=== PATIENT | female | born 1940 | race Caucasian/White ===

== ENCOUNTER 2018-04-10 18:24 | Emergency (ER) | payer MEDICARE, BC ==
[~2018-04-10] VITALS: Ht 152.4 cm; Wt 67.1 kg
[~2018-04-10 18:24] MED LIST: ACIDOPHILUS LA1 EACH PO; ALEVE220 MG PO; ANASPAZ0.125 MG SL; ATENOLOL 25 MG25 M1 PO; CALCIUM 600 +1 EAC1 PO; CIPRO500 MG PO; COLON HEALTH; CYCLOBENZAPRINE5 MG PO; DOXYCYCLINE 10100 M1 PO; ESTRACE0.5 MG; FENOFIBRATE160 MG PO; GLUCOPHAGE500 MG PO; LOPRESSOR25; MIRALAX17 GM PO; MUCINEX600 MG PO; NORCO 5-325 TA1 EACH PO; ONE-A-DAY WOMENS PO; PANTOPRAZOLE SO40 M1 PO; PERCOCET 5-3251 EACH PO; PHENERGAN 25 MG25 M1 PO; PREDNISONE 20 M20 MG PO; SENOKOT-S1 TA1 PO; TESSALON PERLE100 MG PO; TYLENOL ALLERG1 EA11; VENTOLIN HFA 1818 GM INH; VITAMIN D1000 UNI1 PO; VITAMIN E400 UNIT PO; XANAX 0.5 MG0.5 MG PO; ZOFRAN ODT4 MG PO
[2018-04-10 20:03] LABS: URINE BILIRUBIN NEGATIVE (Negative); URINE BLOOD NEGATIVE (Negative); URINE CLARITY CLEAR; URINE COLOR ORANGE; URINE GLUCOSE-RANDOM TRACE (Negative); URINE KETONES NEGATIVE (Negative); URINE LEUKOCYTES-REFLEX NEGATIVE (Negative); URINE PROTEIN NEGATIVE (Negative)
[2018-04-10 20:05] LABS: URINE NITRITE-REFLEX POSITIVE (Negative)
[2018-04-10 20:16] LABS: HYALINE CASTS 0-3 Few /LPF (None Seen)
[2018-04-10 20:17] LABS: MUCUS None Seen strn/LPF (None Seen); SQUAMOUS 0-3 Few /LPF (0-3)
[2018-04-10 20:19] LABS: BACTERIA-REFLEX 1-9 Few /HPF (None Seen); CRYSTALS None Seen /LPF (None Seen); URINE RBC None Seen /HPF (0-2); URINE WBC-REFLEX None Seen /HPF (0-5)
[2018-04-10] MEDS ORDERED: MACROBID 100 M100 M2 PO (20:24)
[2018-04-10 20:43] VITALS: BP 195/62
== END 2018-04-10 20:43 | disposition home or self-care (01) ==
LOC: M.ERS 18:24
PROVIDERS: Physician Assistant
DX: N39.0 Urinary tract infection, site not specified (principal); R33.9 Retention of urine, unspecified; N81.10 Cystocele, unspecified; I10 Essential (primary) hypertension; E11.9 Type 2 diabetes mellitus without complications; E78.00 Pure hypercholesterolemia, unspecified; Z85.3 Personal history of malignant neoplasm of breast; Z88.6 Allergy status to analgesic agent; Z88.1 Allergy status to other antibiotic agents; Z88.8 Allergy status to other drugs, medicaments and biological substances

== ENCOUNTER 2018-09-09 12:22 | Emergency (ER) | payer MEDICARE, BC, OTHER ==
[~2018-09-09] VITALS: Ht 160 cm; Wt 68.5 kg
[~2018-09-09 12:22] MED LIST changes: +MACROBID 100 M100 M2 PO
[2018-09-09] MEDS ORDERED: FLONASE 0.05%50 MCG NASAL (12:37)
[2018-09-09] MEDS ORDERED: AMOXICILLIN 50500 MG PO (12:37)
[2018-09-09 13:29] LABS: ABSOLUTE EOSINOPHILS 0.1 thou/uL (0.0-0.7); ABSOLUTE LYMPHOCYTES 2.3 thou/uL (0.8-5.3); ABSOLUTE MONOCYTES 0.7 thou/uL (0.0-1.2); BASOPHILS 0.3 %; EOSINOPHILS 1.4 %; HEMATOCRIT 36.2 % (37.0-47.0); HEMOGLOBIN 11.9 gm/dL (12.0-15.0); LYMPHOCYTES 28.4 %; MCH 28.8 pg (26.0-34.0); MCHC 32.9 g/dL (28.0-37.0); MCV 87.7 fL (80.0-100.0); MONOCYTES 8.6 %; MPV 8.8 fl. (7.2-11.1); NUCLEATED RBCS 0 /100WBC; PLATELET COUNT* 245 thou/uL (150-400); POLYS 61.3 %; RBC 4.13 mil/uL (4.20-5.00); RDW-CV 17.4 % (10.5-14.5); WBC 8.1 thou/uL (4.0-11.0)
[2018-09-09 13:37] LABS: ANION GAP 7 mmol/L (7-16); BUN 22 mg/dL (7-18); CHLORIDE 93 mmol/L (98-107); CO2 33 mmol/L (21-32); GLUCOSE 122 mg/dL (70-99); POTASSIUM 3.8 mmol/L (3.5-5.1); SODIUM 133 mmol/L (136-145)
[2018-09-09 13:47] LABS: ALBUMIN 4.2 g/dL (3.4-5.0); ALKALINE PHOSPHATASE 41 U/L (46-116); SGOT 24 U/L (15-37); SGPT 26 U/L (30-65); TOTAL BILIRUBIN 0.8 mg/dL (<0.1-1.0); TROPONIN-I LEVEL <0.06 ng/mL (<0.06)
[2018-09-09 14:56] LABS: BE 5.2 mmol/L (-2 to +3); HCO3 29.6 mmol/L (22.0-26.0); PCO2 42.9 mmHg (35.0-45.0); PO2 75.4 mmHg (75.0-100.0); pH 7.457 (7.340-7.450)
[2018-09-09 17:01] LABS: URINE BILIRUBIN NEGATIVE (Negative); URINE BLOOD NEGATIVE (Negative); URINE CLARITY CLEAR; URINE COLOR YELLOW; URINE GLUCOSE-RANDOM NEGATIVE (Negative); URINE KETONES NEGATIVE (Negative); URINE LEUKOCYTES-REFLEX 1+ (Negative); URINE NITRITE-REFLEX NEGATIVE (Negative); URINE PROTEIN NEGATIVE (Negative); URINE SPECIFIC GRAVITY 1.015 (1.005-1.030); URINE UROBILINOGEN 0.2 E.U./dl (0.2-1.0)
[2018-09-09 17:11] LABS: BACTERIA-REFLEX None Seen /HPF (None Seen); CASTS None Seen /LPF (None Seen); CRYSTALS None Seen /LPF (None Seen); SQUAMOUS 4-10 Moderate /LPF (0-3); URINE RBC None Seen /HPF (0-2); URINE WBC-REFLEX None Seen /HPF (0-5)
[2018-09-09] MEDS ORDERED: ANTIVERT25 MG PO (17:41)
[2018-09-09] MEDS ORDERED: KEFLEX500 M1 PO (17:41)
[2018-09-09 17:58] VITALS: BP 176/61
--- NOTE | 2018-09-09 18:10 | EKG ---
[place] [address] ELECTROCARDIOGRAM REPORT Name: NESSA JOSÉ Room: [facility]#: [id number] Admission: 09/09/18 Attend Phys: Discharge: 09/09/18 Date of : 40 Report #: [id number] THIS REPORT FOR: //name// [facility] ED Test Date: 2018-09-09 Test Time: 13:36:41 Pat Name: NESSA JOSÉ Department: Room: Gender: F [employer] Operator: CASSIDY : 1940 Requested By: Doretha Remy Order Number: [id number] MD: Yuri Rojas Measurements Intervals Asher Rate: 61 P: -76 NH: 178 QRS: -23 QRSD: 110 T: 13 QT: 408 QTc: 411 Interpretive Statements Sinus rhythm Left ventricular hypertrophy Compared to ECG 04/19/2017 14:54:17 Atrial premature complex(es) no longer present Short NH interval no longer present Electronically Signed On 09-09-2018 18:10:24 DIRECTOR OF HEAD START by Yuri Rojas [email or web address] <ELECTRONICALLY SIGNED> By: Yuri Rojas MD, [facility] 09/09/18 1810 [id number] Yuri Rojas MD, [facility] /EPI
== END 2018-09-09 18:01 | disposition home or self-care (01) ==
LOC: M.ERS 12:22
PROVIDERS: Nurse Practitioner Family
DX: J32.0 Chronic maxillary sinusitis (principal); R42 Dizziness and giddiness; I10 Essential (primary) hypertension; E11.9 Type 2 diabetes mellitus without complications; E78.00 Pure hypercholesterolemia, unspecified; Z88.1 Allergy status to other antibiotic agents; Z88.6 Allergy status to analgesic agent; Z88.8 Allergy status to other drugs, medicaments and biological substances; Z85.3 Personal history of malignant neoplasm of breast

== ENCOUNTER 2018-10-09 01:24 | Inpatient (IN) | payer MEDICARE, BC, OTHER ==
[~2018-10-09] VITALS: Ht 152.4 cm; Wt 70.2 kg
[~2018-10-09 01:24] MED LIST changes: -ACIDOPHILUS LA1 EACH PO; +ACIDOPHILUS LACT1 GM PO; +AMOXICILLIN 50500 MG PO; +ANTIVERT25 MG PO; +FLONASE 0.05%50 MCG NASAL; +KEFLEX500 M1 PO; +SENOKOT-S TABL1 EACH PO; -SENOKOT-S1 TA1 PO
[2018-10-09 01:27] VITALS: BP 204/84
[2018-10-09 02:16] LABS: ABSOLUTE EOSINOPHILS 0.1 thou/uL (0.0-0.7); ABSOLUTE LYMPHOCYTES 1.3 thou/uL (0.8-5.3); ABSOLUTE MONOCYTES 0.6 thou/uL (0.0-1.2); BASOPHILS 0.6 %; EOSINOPHILS 2.1 %; HEMOGLOBIN 10.2 gm/dL (12.0-15.0); LYMPHOCYTES 26.3 %; MCH 28.1 pg (26.0-34.0); MCV 85.1 fL (80.0-100.0); MONOCYTES 11.8 %; MPV 8.3 fl. (7.2-11.1); NUCLEATED RBCS 0 /100WBC; PLATELET COUNT* 255 thou/uL (150-400); POLYS 59.2 %; RBC 3.65 mil/uL (4.20-5.00); RDW-CV 15.3 % (10.5-14.5); WBC 5.1 thou/uL (4.0-11.0)
[2018-10-09 02:23] LABS: CREATININE 0.9 mg/dL (0.6-1.3); POTASSIUM 3.7 mmol/L (3.5-5.1)
[2018-10-09 02:28] LABS: ALBUMIN 3.5 g/dL (3.4-5.0); TOTAL BILIRUBIN 0.5 mg/dL (<0.1-1.0)
[2018-10-09 03:23] LABS: ESR (SEDRATE) 2 mm/hr (0-30)
[2018-10-09 04:55] VITALS: BP 147/52
[2018-10-09 05:00] VITALS: BP 154/62
--- NOTE | 2018-10-09 06:56 | NUR ---
Admit this am at 0440 with left knee pain and swelling and unable to ambulate. She states she hasn't fallen, she does live alone. L leg&foot is swollen. She has 2+ pedal pulses bilat. She has stress incontinence, wears pad. No skin issues. She is alert and oriented x 4. Oriented to callight and tv and phone.
[2018-10-09 07:40] VITALS: BP 154/64
[2018-10-09 09:31] LABS: URINE BILIRUBIN NEGATIVE (Negative); URINE BLOOD NEGATIVE (Negative); URINE CLARITY CLEAR; URINE COLOR YELLOW; URINE GLUCOSE-RANDOM NEGATIVE (Negative); URINE KETONES NEGATIVE (Negative); URINE NITRITE-REFLEX NEGATIVE (Negative); URINE PROTEIN NEGATIVE (Negative); URINE UROBILINOGEN 0.2 E.U./dl (0.2-1.0)
[2018-10-09 09:32] LABS: URINE LEUKOCYTES-REFLEX 2+ (Negative)
[2018-10-09 09:51] LABS: CASTS None Seen /LPF (None Seen); CRYSTALS None Seen /LPF (None Seen); MUCUS 0-3 Light strn/LPF (None Seen); SQUAMOUS 0-3 Few /LPF (0-3); URINE RBC 0-2 Rare /HPF (0-2); URINE WBC-REFLEX 6-15 Few /HPF (0-5)
--- NOTE | 2018-10-09 11:10 | NUR ---
INITIAL ASSESSMENT: Pt evaluated for d/c planning needs. Reviewed chart and spoke with nurse and pt. Pt is alert and oriented. Pt lives alone in duplex and was independent with ADL's prior to admission to the hospital. Pt states she remains active in the community and is still driving. Pt uses walker for ambulation. Pt said she has had home health in the past. Pt is hopeful to return home on d/c from hospital. Pt has been to [facility] in the past. Will remain available to assist as needed.
[2018-10-09 11:21] LABS: CALCIUM 8.3 mg/dL (8.5-10.1); CREATININE 0.8 mg/dL (0.6-1.3); POTASSIUM 3.4 mmol/L (3.5-5.1)
--- NOTE | 2018-10-09 16:25 | NUR ---
RECIEVED O.T. EVAL AND TX ORDERS. WILL DEFER TO P.T. AND NURSING. PLEASE ORDER FURTHER O.T. SERVICES IF NEEDED.
[2018-10-09 17:03] VITALS: BP 145/67
--- NOTE | 2018-10-09 18:35 | NUR ---
ASSUMED CARE OF PATIENT AT APPROX 0730. ALERT AND ORIENTED X4. ASSESSMENT COMPLETED AND CHARTED. VSS ON ROOM AIR. NO COMPLAINTS OF NASEA, OR SOA. PAIN HAS BEEN MINIMAL AND MANAGED WITH ORAL DOSE OF HYDROCODONE THIS AM AND PLACEMENT OF LIDOCAINE PATCH TO LEFT KNEE. PATIENT USING BEDPAN FOR VOIDING, NO BOWEL MOVEMENT TODAY. SITS AT EDGE OF THE BED FOR MEALS. EDUCATED ON RISKS FOR FALL AND PRECAUTIONS TO P[REVENT THEM, COMMUNICATES UNDERSTANDING. FALL PRECAUTIONS IN PLACE. HOURLY ROUNDS COMPLETED. CALL LIGHT WITHIN REACH AND USES APPROPRIATELY. NURSING WILL CONTINUE TO MONITOR.
[2018-10-09 20:00] VITALS: BP 148/64
[2018-10-10 04:06] LABS: HEMATOCRIT 32.1 % (37.0-47.0); HEMOGLOBIN 10.6 gm/dL (12.0-15.0); MCH 28.7 pg (26.0-34.0); MCHC 33.1 g/dL (28.0-37.0); MCV 86.5 fL (80.0-100.0); RBC 3.71 mil/uL (4.20-5.00); RDW-CV 15.7 % (10.5-14.5); WBC 3.9 thou/uL (4.0-11.0)
[2018-10-10 04:18] LABS: CALCIUM 8.5 mg/dL (8.5-10.1); CREATININE 0.7 mg/dL (0.6-1.3); POTASSIUM 3.6 mmol/L (3.5-5.1)
--- NOTE | 2018-10-10 06:19 | NUR ---
ASSUMED PATIENT CARE AT 1900. PATIENT ALERT AND ORIENTED TIMES FOUR. ABLE TO AMBULATE WITH GAIT BELT AND WALKER TO THE BSC AND RECLINER. O2 IN PLACE AT 2L. IV PATENT WITH FLUIDS INFUSING. MINOR COMPLAINTS OF PAIN, CONTROLLED WITH ORAL MEDICATION. NO SKIN ISSUES NOTED. USES CALL LIGHT APPROPRIATELY. EYEGLASS MAKER AND HOURLY ROUNDING COMPLETED DOCUMENTED
[2018-10-10 08:30] VITALS: BP 184/74
--- NOTE | 2018-10-10 18:37 | NUR ---
PATIENT REMAINED ALERT AND ORIENTED X'S 4. VITAL SIGNS AND SPO2 STABLE. IV CLEAN, FLUSHING FLUIDS. PAIN WELL CONTROLLED WITH PATCH AND MEDS. TOLERATED DIET, NO NAUSEA AND VOMITING. VOIDED AND PASSED BM WITHOUT ISSUE. COMPLETED HOURLY ROUNDING. CALL LIGHT WITHIN REACH. WILL CONTINUE TO MONITOR.
[2018-10-10 21:20] VITALS: BP 178/80
--- NOTE | 2018-10-11 05:23 | NUR ---
ASSUMED CARE OF PATIENT AT APPROX 1930. ALERT AND ORINTED X4. VSS ON ROOM AIR. NO COMPLAINTS OF NAUSEA OR SOA. PAIN AND ANXIETYT MANAGED WITH MEDICATIONS. PATEINT STATED THAT SHE WAS VERY LONELY AND DIDNT UNDERSTAND WHY SHE HADNT SEEN ANYONE SINCE SHES BEEN HERE. WHEN ASKED IF SHE MEANT STAFF SHE SAID NO, THE OTHER PATIENTS. AFTER HAVING MEDICATION FOR PAIN, ANXIETY AND MUSCLE SPASMS, PATIENT SLEPT THROUGHOUT THE NIGHT. FALL PRECAUTIONS IN PLACE. CALL LIGHT IN REACH AND PATIENT USES IT FREQUENTLY. HOURLY ROUNDS COMPLETED. NURSING WILL CONTINUE TO MONITOR.
[2018-10-11 08:30] VITALS: BP 195/92
[2018-10-11 16:05] VITALS: BP 140/65
--- NOTE | 2018-10-11 17:53 | NUR ---
ALERT AND ORIENTED X4. UP WITH ASSIST X1 WITH WALKER AND GAIT BELT. DENIES PAIN AND NAUSEA. TOLERATING DIET. ATTENDED PHYSICAL THERAPY THIS SHIFT. IV IS PATENT AND SALINE LOCKED. VSS ON ROOM AIR. HOURLY ROUNDS HAVE BEEN MAINTAINED THROUGHOUT SHIFT. CALL LIGHT IS WITHIN REACH NURSING WILL CONTINUE TO MONITOR.
[2018-10-11 20:00] VITALS: BP 151/61
--- NOTE | 2018-10-12 05:04 | NUR ---
ASSUMED CARE OF PATIENT AT APPROX 1930. ALERT AND ORIENTED X4. ASSESSMENT COMPLETED AND CHARTED. VSS ON ROOM AIR. PATIENT HAD NO COMPLAINTS OF SOA. PAIN MINIMAL, ANXIETY PRESENT UPON SHIFT ASSESSMENT, BOTH MANAGED WITH ORAL MEDICASTION AND TOPICAL CREAM APPLIED TO AFFECTED LEG. UP WITH GAIT BELT AND WALKER TO THE BATHROOM. OBSERVED RESTING COMFORTABLY IN BED UPON HOURLY ROUNDS. CALL LIGHT WITHIN REACH AND PATIENT USES APPROPRIATELY. NURSING WILL CONTINUE TO MONITOR.
[2018-10-12 08:00] VITALS: BP 135/65
--- NOTE | 2018-10-12 15:15 | NUR ---
[facility] SALESPERSON INFORMED THAT THE PLAN IS FOR THE PATIENT TO D/C TO INPATIENT REHAB HERE IN THE HOSPITAL WHEN APPROVED. INPATIENT REHAB CONSULTED AND PT/OT WORKING WITH THE PATIENT. AWAITING INPATIENT REHAB DECISION. CM WILL REMAIN AVIALABLE TO ASSIST AND FOLLOW NEEDED.
[2018-10-12 16:31] VITALS: BP 160/78
--- NOTE | 2018-10-12 18:25 | NUR ---
PT ALERT AND ORIENTED X 4. DENIES NAUSEA. HAS PAIN IN LEFT KNEE WITH ACTIVITY ONLY. UP WITH SBA X 1 TO BR. RECEIVED HYDROCODNE FOR PAIN CONTROL. HOURLY ROUNDS MAINTAINED. PT WILL USE CALL LIGHT FOR ASSISTANCE. CALL LIGHT WITHIN REACH.
[2018-10-12 20:00] VITALS: BP 156/55
--- NOTE | 2018-10-13 07:37 | NUR ---
PATIENT SLEPT WELL THROUGHOUT THE NIGHT. VSS ON RA. NO C/O PAIN. PATIENT IS UP WITH ASSIST X 1 WITH GAITBELT AND WALKER TO [facility] [place]. MEDICATIONS GIVEN ORDERED AND CHARTED. PATIENT INSTRUCTED TO USE CALL LIGHT WHEN NEEDING ASSISTANCE. HOURLY ROUNDS MADE. FALL PRECAUTIONS IN PLACE AND HOURLY ROUNDS MADE. WILL CONTINUE WITH PLAN OF CARE AND NURSING TO MONITOR.
[2018-10-13 08:00] VITALS: BP 151/77
[2018-10-13 15:45] VITALS: BP 146/76
--- NOTE | 2018-10-13 19:52 | NUR ---
PT ALERT AND ORIENTED X 4. DENIES NAUSEA. PAIN WITH ACTIVITY ONLY. RECEIVED HYDOCODONE FOR PAIN CONTROL. IV PATENT. PARTICIPATED WITH THERAPIES DURING DAY. MRI COMPLETED THIS AFTERNOON. PT HAS A FRACTURE OF THE PROXIMAL LEFT TIBIA PER REPORT. CONSULTED ORTHO-OKAY FOR PATIENT TO CONTINUE CURRENT ACTIVITY AND WILL CONSULT IN MORNING. HOURLY ROUNDS MAINTAINED. CALL LIGHT WITHIN REACH.
[2018-10-13 19:55] VITALS: BP 128/62
[2018-10-13 20:11] LABS: MAGNESIUM 1.2 mg/dL (1.8-2.4); POTASSIUM 4.1 mmol/L (3.5-5.1)
--- NOTE | 2018-10-14 06:05 | NUR ---
PATIENT HAS SLEPT WELL THROUGHOUT THE NIGHT WITHOUT ANY ISSUES. VSS ON RA. PAIN CONTROLLED WITH ORAL PAIN MEDICATION. PATIENT IS UP WITH ASSIST X 1 TO BSC. IV IN LEFT HAND-SL. PATIENT INSTRUCTED TO USE CALL LIGHT WHEN NEEDING ASSISTANCE. HOURLY ROUNDS MADE. WILL CONTINUE WITH PLAN OF CARE AND NURSING TO MONITOR.
[2018-10-14 08:30] VITALS: BP 136/58
[2018-10-14 08:40] VITALS: BP 136/58
[2018-10-14] MEDS ORDERED: AMLODIPINE BESYL5 M1 PO (09:46)
[2018-10-14] MEDS ORDERED: ACIDOPHILUS1 EAC4 PO (09:46)
[2018-10-14] MEDS ORDERED: VOLTAREN GEL 1100 G1 TOP (09:46)
[2018-10-14] MEDS ORDERED: LIDOPATCH1 EACH TOP (09:46)
[2018-10-14 15:46] VITALS: BP 136/58
[2018-10-14 15:48] VITALS: BP 121/54
[2018-10-14 18:00] VITALS: BP 136/58
--- NOTE | 2018-10-14 18:47 | NUR ---
PATIENT LEFT FOR REHAB UPSTAIRS AT 1830. IV DC'D. CALL RITA FOR REPORT. EDUCATED PATIENT ON DISCHARGE INSTRUCTIONS. PATIENT VERBALIZED UNDERSTANDING. ALL BELONGINGS LEFT WITH PATIENT.
== END 2018-10-14 18:54 | DRG 543 ==
LOC: M.ERS 01:24 → M.TBA-ER 03:41 → M.ORTHSURG 03:41
PROVIDERS: Emergency Medicine; Internal Medicine; ADMIT Family Medicine
DX: M84.362A Stress fracture, left tibia, initial encounter for fracture (principal); R65.10 Systemic inflammatory response syndrome (SIRS) of non-infectious origin without acute organ dysfunction; N39.0 Urinary tract infection, site not specified; E87.1 Hypo-osmolality and hyponatremia; E86.0 Dehydration; M17.12 Unilateral primary osteoarthritis, left knee; I10 Essential (primary) hypertension; E11.9 Type 2 diabetes mellitus without complications; G89.29 Other chronic pain; E78.00 Pure hypercholesterolemia, unspecified; M54.9 Dorsalgia, unspecified; Z96.1 Presence of intraocular lens; Z60.2 Problems related to living alone; Z85.3 Personal history of malignant neoplasm of breast; Z90.11 Acquired absence of right breast and nipple; Z87.81 Personal history of (healed) traumatic fracture; Z98.42 Cataract extraction status, left eye; Z98.41 Cataract extraction status, right eye; Z79.899 Other long term (current) drug therapy; Z88.6 Allergy status to analgesic agent

== ENCOUNTER 2018-10-14 15:55 | Inpatient (IN) | payer MEDICARE, BC, OTHER ==
[~2018-10-14] VITALS: Ht 152.4 cm; Wt 67.6 kg
--- NOTE | ~2018-10-14 | PLAN ---
[address] [address] REHAB UNIT PLAN OF CARE Name: NESSA JOSÉ Room: [address] IN [facility].#: [id number] Admission: 10/14/18 Attend Phys: Aminata Parra DO Discharge: 10/30/18 Date of : 40 Report #: [id number] THIS REPORT FOR: //name// CC: Aminata Perez OVERALL PLAN OF CARE This is a 78-year-old female admitted to inpatient rehabilitation to facilitate safe discharge home, status post acute hospitalization post-fall sustaining a left tibial plateau fracture, diagnosed via MRI on 10/13/2018. She does have weightbearing, partial 25-50% on the left lower extremity and to advance as tolerated per Orthopedics. She does have mechanical altered ground with thin liquid diet. She does have some cognitive deficits as well. MEDICAL PROGNOSIS: Good. REHABILITATION PROGNOSIS: Good. Previous level of function was independent to modified independent with activities of daily living including driving and caring for self. Current level of function is minimum to moderate assistance of 1-2 depending on therapy, activity and time of day. ESTIMATED LENGTH OF STAY: 10-12 days with discharge disposition to the home setting with supportive family and accessible house. Physical therapy will see the patient 60-90 minutes per day, 5 days per week, working on upper and lower body strength, balance, coordination, navigation. Occupational therapy will work with the patient 60-90 minutes per day, 5 days per week, working on upper and lower body strength, balance, coordination, navigation, bathing, dressing, and toileting. Speech and language pathology will work with the patient on expression, cognition, memory, and strategies to improve those as well as working with her diet, which is currently mechanical altered ground with thin liquids. This is an overall plan of care, may change from time to time. We will team weekly and make changes to plan of care as needed. By: [id number] Parra DO /lauren
[~2018-10-14 15:55] MED LIST changes: +ACIDOPHILUS1 EAC4 PO; +AMLODIPINE BESYL5 M1 PO; +LIDOPATCH1 EACH TOP; +VOLTAREN GEL 1100 G1 TOP
[2018-10-14 19:03] VITALS: BP 139/67
--- NOTE | 2018-10-15 01:27 | NUR ---
ASSUMED CARE AT 1930, NEW ADMIT CAME AT 1900. WAS SITTING IN RECLINER UNTIL AROUND 2100. UP WITH MIN LIFTING, GAIT BELT, WALKER, MUCH CUEING. VOIDS PER BSC, ABLE TO DO OWN HYGIENE AND CLOTHING ADJUSTMENTS. LIDOCAINE PATCH REMOVED AT HS. ASSESSMENT DONE. MONEY IN PURSE GIVEN TO SECURITY, RECEIPT IN FRONT OF CHART. TAKES MEDS WHOLE, LARGE ONES ALONE, SMALLER ONES A COUPLE TOGETHER WITH WATER. TURNS SELF. BED ALARM SET. TWICE HAS SET OFF ALARM DESPITE EDUCATION, NEEDING TO VOID. ASSISTED TO BSC BOTH TIMES. SAFETY EDUCATION REPEATED. FORGETFUL AND IMPULSIVE. DENIES PAIN AT HS. HOURLY ROUNDS CONTINUE. BED ALARM ON. CALL LITE IN REACH.
--- NOTE | 2018-10-15 03:40 | NUR ---
USED TO CALL LITE TO REQUEST TO VOID. VOIDED PER BSC. MUCH MORE ALERT AND ORIENTED AT THIS TIME. HOURLY ROUNDS CONTINUE. CALL LITE IN REACH. BED ALARM ON.
[2018-10-15 04:50] LABS: HEMATOCRIT 32.5 % (37.0-47.0); HEMOGLOBIN 10.7 gm/dL (12.0-15.0); MCH 28.4 pg (26.0-34.0); MCHC 32.9 g/dL (28.0-37.0); MCV 86.2 fL (80.0-100.0); RBC 3.77 mil/uL (4.20-5.00); RDW-CV 15.6 % (10.5-14.5); WBC 3.2 thou/uL (4.0-11.0)
[2018-10-15 05:11] LABS: CALCIUM 9.4 mg/dL (8.5-10.1); CREATININE 0.8 mg/dL (0.6-1.3); MAGNESIUM 1.3 mg/dL (1.8-2.4); POTASSIUM 3.8 mmol/L (3.5-5.1)
--- NOTE | 2018-10-15 05:50 | NUR ---
MENTATION IMPROVED. MUCH MORE ALERT AND ABLE TO ANSWER QUESTIONS. USED CALL LITE TO CALL TO USE BSC. UP WITH SBA, GAIT BELT, CUEING. VOIDED PER BSC, DID OWN HYGIENE. RETURNED TO BED. DECLINED XANAX AT THIS TIME, BECAUSE SHE WANTED TO SEE HOW SHE DOES THIS MORNING AND REALIZED IT MADE HER VERY SLEEPY. REINFORCED THAT SECURITY TOOK THE MONEY FROM HER PURSE AND LOCKED IT UP, WITH THE RECEIPT IN THE CHART. NO C/O PAIN. HOURLY ROUNDS CONTINUE. BED ALARM ON. CALL LITE IN REACH.
[2018-10-15 08:00] VITALS: BP 142/68
--- NOTE | 2018-10-15 09:00 | NUR ---
Nutrition: Consult received for new Rehab admit. Pt appears nutritionally stable. Albumin 3, BG 142. H/o DM, UTI, breast cancer, HTN. Ground diet. RX noted. Admitted for tibial FX. Wt: 153#. Will follow weekly. Low risk.
--- NOTE | 2018-10-15 17:18 | NUR ---
SW met with pt to complete initial assessment, introduce self, and SW role on inpt rehab unit. Pt alert, oriented. Pt lives at home alone. Pt has 2 sons who live in [place]. Pt has a cousin who is supportive as well. Pt is 25 to 50 % WBS. Pt has an old RW and pt will need a new rolling walker ordered for dc. Pt has a shower bench. Pt has hx with HH services but says she will refuse any HH services at dc. SW to continue to follow to assist with safe dc planning.
--- NOTE | 2018-10-15 18:57 | NUR ---
I ASSUMED CARE OF THE PATIENT AT 0700. SHE IS ALERT AND ORIENTED X4 AND IS UP WITH SBA AND A WALKER/GB. SHE IS PARTIAL WB ON THE LEFT LEG 25-50%. MAG WAS REPLACED. BED IS IN THE LOW LOCKED POSITION AND CALL LIGHT IS IN REACH. HOURLY ROUNDING WAS COMPLETED AND PATIENT NEEDS ARE MET. PAIN IS MANAGED WITH PRN MEDS. WILL CONTINUE TO MONITOR.
[2018-10-15 20:11] VITALS: BP 149/68
--- NOTE | 2018-10-16 01:51 | NUR ---
ASSUMED CARE @ 1947-10/15-.SITS IN RECLINER WATCHING TV.LE'S UP W/ PILLOW UNDER LEFT LE.ASSISTED TO BED BY BASE WAD OPERATOR ADJUSTER @ 2129.HOB UP.REFUSED HEELS OFF BED IN BED.HEELS-NOT RED.BED ALARM PUT ON @ 2129.PRN FLXERIL 10 MG ORAL GIVEN @ 2232 FOR LEFT LE SPASMS.SEE PAIN MANAGEMENT @ 2234.PWB LEFT LE OBSERVED DURING TRANSFERS.MAG OXIDE 400 MG GIVEN 3X Q 2 HOURS @ 2027,2226 & 54.ON HOURLY ROUNDS.BASE WAD OPERATOR ADJUSTER DOING ODD HOUR ROUNDS.
--- NOTE | 2018-10-16 05:14 | NUR ---
SLEEPING SINCE 2319.AWAKE @ INTERVALS TO USE BSC TO VOID X4.TOOK ALL ARIANA CRACKERS TWO PACKAGES ,ONE PACKAGE PEANUT BUTTER & DIET COKE HS SNACKS.
[2018-10-16 05:42] LABS: HEMATOCRIT 31.3 % (37.0-47.0); HEMOGLOBIN 10.2 gm/dL (12.0-15.0); MCH 28.1 pg (26.0-34.0); MCHC 32.7 g/dL (28.0-37.0); MPV 9.1 fl. (7.2-11.1); RBC 3.64 mil/uL (4.20-5.00); RDW-CV 15.4 % (10.5-14.5); WBC 3.2 thou/uL (4.0-11.0)
[2018-10-16 06:14] LABS: CALCIUM 9.1 mg/dL (8.5-10.1); CREATININE 0.8 mg/dL (0.6-1.3); MAGNESIUM 1.5 mg/dL (1.8-2.4); POTASSIUM 3.6 mmol/L (3.5-5.1)
[2018-10-16 07:00] VITALS: BP 136/64
--- NOTE | 2018-10-16 13:47 | NUR ---
ASSUMED CARE AT 0730. ALERT ORIENTED PLEASANT COOPERATIVE. HX OF L TIBIA PLATEAU FX TREATED CONSERVATIVELY. PARTIAL WEIGHT BEARING 25-50 % LLE. TRANSFERS WITH CGA FROM BED TO BSC AND TO RECLINER. DENIES NEED FOR PAIN MEDS AT PRESENT. PARTICIPATING IN THERAPIES THROUGHOUT THE MORNING SOME SOA DURING AFTERNOON P.T. SESSION BUT PT. STATES SHE HAS HX OF BRONCHITIS AND THIS ISNT NEW FOR HER. SITTING IN RECLINER WITH BLES ELEVATED FOR EDEMA CONTROL. TAKS MEDS ONE AT A TIME WITH TAP WATER. ABLE TO DO HYGEINE AND CLOTHING ADJUSTMENTS.
[2018-10-16 18:50] VITALS: BP 147/54
--- NOTE | 2018-10-16 20:00 | NUR ---
SITTING UP IN RECLINER WITH LEGS ELEVATED SLEEPING. AWAKENED FOR HS REASSESSMENT AND MEDICATIONS PASS. VOIDED PER BEDSIDE COMMODE AND THEN ASSISTED TO BED. TRANSFERS PER CGA, STAND, PIVOT, PARTIAL WEIGHT BEARING TO LEFT LOWER EXTEMITY.
--- NOTE | 2018-10-17 06:33 | NUR ---
UP TO BEDSIDE COMMODE 9 TIMES THIS SHIFT. LAST TWO TIMES HAD A BM. ASSISTED WITH [facility]. HAS BEEN UP IN THE RECLINER SINCE ABOUT 0530 READING. UNABLE TO SLEEP. HOURLY ROUNDING IN PROGRESS.
[2018-10-17 07:30] VITALS: BP 144/68
--- NOTE | 2018-10-17 16:41 | NUR ---
PATIENT ALERT AND ORIENTED X 4. VITAL SIGNS STABLE ON ROOM AIR. AFEBRILE. UP TO THE BEDSIDE COMODE WITH ASSISTANCE. DENIES PAIN AND NAUSEA AT THIS TIME. TOLERATED MORNING THERAPIES. RESTING IN CHAIR THIS AFTERNOON. FALL PRECAUTIONS IN PLACE AND CHAIR ALARM ON. HOURLY ROUNDS MAINTAINED THROUGHOUT THE SHIFT. CALL LIGHT WITHIN REACH. NURSING WILL CONTINUE TO MONITOR.
[2018-10-17 20:00] VITALS: BP 133/66
--- NOTE | 2018-10-18 05:17 | NUR ---
ASSUMED PT CARE AT 1930. PT ALERT AND ORIENTED X4, POLITE AND COOPERATIVE WITH CARES ALREADY IN BED AT SHIFT CHANGE. HX OF L TIBIA PLATEAU FX. PARTIAL WEIGHT BEARING 25-50% LLE. PT UP TO BSC WITH CGA, GAIT BELT, STAND/PIVOT TO VOID SEVERAL TIMES OVERNIGHT. PT DOES OWN PERICARES. PRN PAIN MEDICATION AND FLEXERIL AT HS. 1+ EDEMA TO BLE. NO STOOL THIS SHIFT. TAKES MEDS ONE AT A TIME WITH WATER. USES CALL LIGHT APPROPRIATELY. CALL LIGHT AND FREQUENTLY USED ITEMS WITHIN REACH. BED ALARM ON FOR SAFETY. HOURLY ROUNDING IN PROGRESS, WILL CONTINUE TO MONITOR.
[2018-10-18 08:15] VITALS: BP 151/70
--- NOTE | 2018-10-18 16:46 | NUR ---
PATIENT ALERT AND ORIENTED X 4. VITAL SIGNS STABLE ON ROOM AIR. AFEBRILE. UP WITH ASSISTANCE TO THE BEDSIDE COMMODE. DENIES PAIN AND NAUSEA AT THIS TIME. FALL PRECAUTIONS IN PLACE AND BED/CHAIR ALARM ON. HOURLY ROUNDS MAINTAINED THROUGHOUT THE SHIFT. CALL LIGHT WITHIN REACH. NURSING WILL CONTINUE TO MONITOR.
[2018-10-18 20:00] VITALS: BP 154/75
--- NOTE | 2018-10-19 05:20 | NUR ---
ASSUMED PT CARE AT 1930. PT ALERT AND ORIENTED X4, POLITE AND COOPERATIVE WITH CARES. PT IS [place]. ALREADY IN BED AT SHIFT CHANGE. HX OF L TIBIA PLATEAU FX. PARTIAL WEIGHT BEARING 25-50% LLE. 1+ EDEMA TO BLE. PT UP TO BSC WITH CGA, GAIT BELT, STAND/PIVOT TO VOID SEVERAL TIMES OVERNIGHT. NO STOOL THIS SHIFT. PT DOES OWN PERICARES. WEARS BRIEF. PRN PAIN MEDICATION AND FLEXERIL AT HS. MELATONIN GIVEN WITH GOOD RESULT. TAKES MEDS ONE AT A TIME WITH WATER, LARGE PILLS CUT IN HALF. USES CALL LIGHT APPROPRIATELY. CALL LIGHT AND FREQUENTLY USED ITEMS WITHIN REACH. BED ALARM ON FOR SAFETY. HOURLY ROUNDING IN PROGRESS, WILL CONTINUE TO MONITOR.
[2018-10-19 07:30] VITALS: BP 129/70
--- NOTE | 2018-10-19 13:16 | NUR ---
ASSUMED CARE AT 0730. ALERT ORIENTED PLEASANT COOPERATIVE. HX OF L TIBIA PLATEAU NON DISPLACED FX 25-50% WEIGHT BEARING LLE USING WALKER GAIT BELT AND VERBAL CUES. PARTCIPATING IN THERAPIES THROUGHOUT THE MORNING. SITTING IN RECLINER AT BEDSIDE WHEN NOT IN THERAPIES. DENIES NEED FOR PRN PAIN MEDS. VOIDS IN BSC AND IS ABLE TO DO HYGEINE AFTERWARDS AND CLOTHING ADJUSTMENTS. FEEDS SELF AND TAKES MEDS ONE AT A TIME WITH WATER HAS HX OF HIATAL HERNIA. APPETITE GOOD. USES CALL LIGHT APPROPRIATELLY FOR ASSISTANCE.
[2018-10-19 20:00] VITALS: BP 155/75
--- NOTE | 2018-10-20 05:20 | NUR ---
ASSUMED PT CARE AT 1930. PT ALERT AND ORIENTED X4, POLITE AND COOPERATIVE WITH CARES. PT IS [place]. SITTING UP IN RECLINER AT SHIFT CHANGE. HX OF L TIBIA PLATEAU FX. PARTIAL WEIGHT BEARING 25-50% LLE. PT US TO BSC WITH CGA, GAIT BELT AND STAND/PIVOT SEVERAL TIMES OVERNIGHT TO VOID. NO STOOL THIS SHIFT. PT DOES OWN PERICARES. WEARS BRIEF. PRN PAIN MEDICATION AT HS. PT STARTED ROPINOROLE TONIGHT WHICH WAS EFFECTIVE. TAKES MEDS ONE AT A TIME WITH WATER, LARGE PILLS CUT IN HALF. USES CALL LIGHT APPROPRIATELY. CALL LIGHT AND FREQUENTLY USED ITEMS WITHIN REACH. BED ALARM ON FOR SAFETY. HOURLY ROUNDING IN PROGRESS, WILL CONTINUE TO MONITOR.
[2018-10-20 07:40] VITALS: BP 144/79
--- NOTE | 2018-10-20 14:15 | NUR ---
ASSUMED CARE AT 0730. ALERT ORIENTED PLEASANT COOPERATIVE. HX OF L NON DISPLACED TIBIA PLATEAU FX 25-50% WEIGHT BEARING LIMIT. TRANSFERS WITH CGA AND CUES FOR WEIGHT BEARING. DENIES PAIN OR REQUESTS. USES CALL LIGHT APPROPRIATELY FOR ASSIST, SITTING IN RECLINER AT BEDSIDE WHEN NOT PARTICIPATING IN THERAPIES.TO DR FOR MEALS PER W/C. TAKES MEDS 1 AT A TIME WITH WATER HAS SOME DIFFICULTY WITH CALCIUM CUT IN HALF EATS ARIANA CRACKERS AFTER MEDS. FEEDS SELF APPETITE FAIRLY GOOD.
--- NOTE | 2018-10-20 16:05 | NUR ---
PTS. FEET HAVE EDEMA PRESENT ELEVATE MUCH POSSIBLE WHEN NOT IN THERAPIES DENIES PAIN OR REQUESTS.
[2018-10-20 19:40] VITALS: BP 129/63
--- NOTE | 2018-10-21 01:22 | NUR ---
ASSUMED CARE @ 1924-10/20-.SITS IN RECLINER W/ LE'S UP.READING BOOK.CHAIR ALARM ALREADY ON @ 1924.MIN ASSIST FOR ALL TRANSFERS & TOILETING.PWB LEFT LE OBSERVED DURING TRANSFERS.WEARS PULL UPS.FOOT OF BED ELEVATED @ 2014 WHEN IN BED DUE TO EDEMA-LE'S.SEE PAIN MANAGEMENT @ 2055.ON HOURLY ROUNDS.
--- NOTE | 2018-10-21 05:14 | NUR ---
SLEEPING SINCE 2140 & SLEPT GOOD ALL NIGHT.AWAKE @ INTERVALS TO USE BSC TO VOID X 4.TOOK ONE PACKAGE ARIANAKARY MENDIETAERS W/ HS MEDS.
--- NOTE | 2018-10-21 07:30 | NUR ---
ASSUMED CARE OF PT ASSESSED AND DOCUMENTED. PT IS A&O WITH NO C/O PAIN. AIDED PT TO BEDSIDE CHAIR WITH GAIT BELT AND WALKER. PT IS ON FALL PRECAUTIONS PER FACILITY PROTOCOL. VSS WNL. PT IS AFEBRILE. LUNGS ARE CLEAR AND SHE IS ON ROOM AIR. PT HAS TRACE EDEMA NOTED IN BLLE'S. ENCOURAGE USE OF INCENTIVE SPIROMETER. BED IS IN LOW POSTION CALL LIGHT IS IN REACH. WM.
[2018-10-21 08:00] VITALS: BP 101/53; BP 149/77
[2018-10-21] MEDS ORDERED: [UNRECOGNIZED DRUG - SUPPLY] VAG (12:32)
[2018-10-21] MEDS ORDERED: ESTRADIOL 1 MG T1 M1 PO (12:36)
--- NOTE | 2018-10-21 12:57 | NUR ---
Hawa. FROM DR BILLINGS TO CALL PTS PHARMACY AND FIND OUT WHAT EXISTING ORDERS ARE FOR PTS PESARY. WILL CHANGE PTS PHARMACY ON RECORD SHE NOW USES HY-VEE AT 40 AND 7. SPOKE WITH YORDY IN PHARMACY. ORDER IS FOR TOPICAL ESTRIDOL CREME .1 MG 3X WKLY WELL TOPICAL TRIMO-PRICE .025% GEL Q OTHER DAY. PER VANESSA PT WILL NEED F/UP WITH UROLOGY ON AN OUT PT BASIS.
[2018-10-21 13:07] VITALS: BP 149/77
--- NOTE | 2018-10-21 15:00 | NUR ---
SW met with pt to review team conference summary and plan for pt to remain on rehab unit another week with team to reassess pt length of stay during team conference next Friday. Pt in agreement with plan and hopeful that she is ready to dc home alone at time of dc. Pt also mentioned that she thinks she has a doctor's appt scheduled for sometime in October and that her son plans to help figure out the schedule. SW to continue to follow to assist with safe dc planning.
--- NOTE | 2018-10-21 16:25 | NUR ---
PT HAS RESTED IN HER ROOM AT BEDSIDE CHAIR. SHE IS UP TO THE DINING ROOM FOR 2 MEALS. NEW ORDER FOR WBAT. PT WAS UP TO THE COMMODE WITH GAITBELT AND WALKER AND HAD A LG BM. NEW ORDERS IN FOR PESARY CREME AND GEL. PT IS ANXIOUS ABOUT MISSING HER UROLOGY APPT SET IN OCT. SHE DOES NOT RECALL THE DATE AND IS TRYING TO GET SON TO GO TO HER HOUSE AND LOOK FOR APPT TIME. PT IS FORGETFUL. PT CONT TO USE INCENTIVE SPIROMETER.. EDUCATION GIVEN ON DEMAND. HOURLY ROUNDING CONTINUES.
[2018-10-21 20:20] VITALS: BP 167/61
--- NOTE | 2018-10-21 20:20 | NUR ---
ASSISTED TO BEDSIDE COMMODE TO VOID. TRANSFERS PER CGA, GAITBELT, STAND, PIVOT, WBAT TO LLE. DENIES PAIN. VERY NEZ PERCE. DID OWN HYGIENE. REQUIRED ASSISTANCE WITH PULLING UP PULL UPS. TOOK MEDICATIONS WHOLE ONE AT A TIME WITH WATER AND WOULD STOP AFTER A FEW PILLS TO EAT A FEW BITES OF A ARIANA CRACKER.
--- NOTE | 2018-10-22 05:43 | NUR ---
UP X 4 DURING THE NIGHT TO THE BEDSIDE COMMODE TO VOID. NO COMPLAINTS VOICED. RESTED QUIETLY IN BETWEEN VOIDS. HOURLY ROUNDING IN PROGRESS.
[2018-10-22 08:00] VITALS: BP 123/75
--- NOTE | 2018-10-22 13:26 | NUR ---
AM ASSESSMENT AND VITAL SIGNS COMPLETED DOCUMENTED. PT IS AMBULATORY WITH A FFW FOR SHORT DISTANCES. BILATERAL LOWER EXTREMITY AND PEDAL EDEMA PRESENT, PT ENCOURAGED TO KEEP HER LEGS ELEVATED BETWEEN THERAPIES. FALL PRECAUTIONS AND HOURLY ROUNDING CONTINUE.
--- NOTE | 2018-10-22 18:13 | NUR ---
PT CONTINUES TO PROGRESS TOWARD GOALS AND HAS AMBULATED TO AND FROM THE DINING ROOM FOR LUNCH AND DINNER TODAY. NO ACUTE DISTRESS, WILL CONTINUE TO MONITOR.
[2018-10-22 19:50] VITALS: BP 126/63
--- NOTE | 2018-10-22 19:50 | NUR ---
SITTING UP IN RECLINER WATCHING TV. COMPLAINED OF HAVING MORE URINARY STRESS INCONTINENCE THAN USUAL TODAY DUE TO INTERMITTENT COUGHING. INTERESTED IN HAVING THROAT LOZENGERS ORDERED. TRANSFERS WITH SBA, GAITBELT, STAND, PIVOT.
--- NOTE | 2018-10-23 06:51 | NUR ---
PAIN MEDICATION GIVEN FOR COMPLAINT OF BILATERAL LEG DISCOMFORT WITH GOOD RELIEF. SLEPT SOUNDLY. UP X ONE DURING THE NIGHT TO VOID. HOURLY ROUNDING IN PROGRESS.
[2018-10-23 08:00] VITALS: BP 146/73
--- NOTE | 2018-10-23 16:21 | NUR ---
ASSUMMED CARE OF PT AT 0730, PT ALERT AND ORIENTED, FORGETFUL, TRANSFERS WITH ASSIST OF 1 , GB WALKER, AMBULATES TO BATHROOM AND DININGROOM THIS SHIFT, TAKING FOOD AND FLUIDS WELL, DENIED NEED FOR PAIN MEDICATIONS THIS SHIFT, TAKING FOOD AND FLUIDS WELL, PARTICIPATED IN ALL HTERAPIES, TO DININGROOM FOR LUNCH, HOURLY ROUNDING COMPLETED, ASSESSMENT COMPLETE WILL CONTINUE TO MONITOR.
[2018-10-23 16:47] LABS: URINE BILIRUBIN NEGATIVE (Negative); URINE BLOOD NEGATIVE (Negative); URINE CLARITY CLEAR; URINE COLOR YELLOW; URINE GLUCOSE-RANDOM NEGATIVE (Negative); URINE KETONES NEGATIVE (Negative); URINE LEUKOCYTES-REFLEX 1+ (Negative); URINE NITRITE-REFLEX NEGATIVE (Negative); URINE PROTEIN NEGATIVE (Negative); URINE UROBILINOGEN 0.2 E.U./dl (0.2-1.0)
[2018-10-23 16:56] LABS: SQUAMOUS >10 Many /LPF (0-3)
[2018-10-23 16:57] LABS: URINE WBC-REFLEX 6-15 Few /HPF (0-5)
[2018-10-23 16:58] LABS: CRYSTALS None Seen /LPF (None Seen); HYALINE CASTS 0-3 Few /LPF (None Seen); MUCUS 0-3 Light strn/LPF (None Seen); URINE RBC 0-2 Rare /HPF (0-2)
[2018-10-23 20:00] VITALS: BP 143/71
--- NOTE | 2018-10-24 05:10 | NUR ---
ASSUMED CARE AT 1930. PATIENT RESTING IN RECLINER UNTIL AROUND 2029 THEN TO BED. UP WITH SBA, GAIT BELT, PWB TO LLE. VOIDED PER TOILET TONIGHT. DOES HYGIENE AND CLOTHING ADJUSTMENTS. TAKES PILLS WHOLE WITH WATER. VAGINAL MEDICINE THAT SHE USES FOR HER PESSARY NOT AVAILABLE, FAMILY NEEDS TO BRING IT IN. NO C/O COUGHING TONIGHT. HOURLY ROUNDS CONTINUE. BED ALARM ON. CALL LITE IN REACH.
[2018-10-24 05:52] LABS: ABSOLUTE EOSINOPHILS 0.2 thou/uL (0.0-0.7); ABSOLUTE MONOCYTES 0.3 thou/uL (0.0-1.2); ABSOLUTE NEUTROPHILS 1.1 thou/uL (1.6-8.1); BASOPHILS 1.2 %; HEMATOCRIT 31.5 % (37.0-47.0); HEMOGLOBIN 10.4 gm/dL (12.0-15.0); LYMPHOCYTES 38.6 %; MCH 27.9 pg (26.0-34.0); MCV 84.8 fL (80.0-100.0); MONOCYTES 12.7 %; MPV 9.4 fl. (7.2-11.1); NUCLEATED RBCS 0 /100WBC; PLATELET COUNT* 186 thou/uL (150-400); POLYS 39.5 %; RBC 3.71 mil/uL (4.20-5.00); RDW-CV 15.6 % (10.5-14.5); WBC 2.7 thou/uL (4.0-11.0)
[2018-10-24 06:22] LABS: CALCIUM 9.4 mg/dL (8.5-10.1); CREATININE 0.7 mg/dL (0.6-1.3); POTASSIUM 3.4 mmol/L (3.5-5.1)
[2018-10-24 08:00] VITALS: BP 135/67
--- NOTE | 2018-10-24 17:33 | NUR ---
ASSUMMED CARE OF PT AT 0730, PT ALERT AND ORIENTED, FORGETFUL, PT TRANSFERS WITH SBA GB WALKER, VOIDS PER TOILET, BM X 2 THIS SHIFT, TAKING FOOD AND FLUIDS WELL, DENIES PAIN, AMBULATED TO DININGROOM FOR MEALS, PARTICIPATED IN ALL THERAPIES, HOURLY ROUNDING COMPLETED, ASSESSMENT COMPLETE, WILL CONTINUE TO MONITOR.
[2018-10-24 20:00] VITALS: BP 146/62
--- NOTE | 2018-10-25 00:27 | NUR ---
ASSUMED CARE AT 1930. PATIENT RESTING IN RECLINER UNTIL AROUND 1999. UP WITH WALKER, GAIT BELT. VOIDS PER TOILET, DOES OWN CARES. BRIEF WITH SET UP. TAKES PILLS WHOLE WITH WATER. TURNS SELF EASILY. MEDICATED FOR PAIN WITH RELIEF. WAS READING A BOOK FOR A WHILE AFTER 0. BED ALARM ON. CALL LITE IN REACH. HOURLY ROUNDS CONTINUE.
--- NOTE | 2018-10-25 05:30 | NUR ---
SLEPT MUCH OF THE NIGHT, WAS UP FOR A LITTLE WHILE AFTER VOIDING BUT RETURNED TO SLEEP. TURNS SELF EASILY. NO FURTHER C/O PAIN. SEE MAR. UP WITH GAIT BELT, WALKER, VOIDS PER TOILET. HOURLY ROUNDS CONTINUE. BED ALARM ON. CALL LITE IN REACH.
[2018-10-25 08:15] VITALS: BP 133/65
--- NOTE | 2018-10-25 17:10 | NUR ---
ASSUMMED CARE OF PT AT 0730, PT ALERT AND ORIENTED, FORGETFUL, TRANSFERS WITH SBA, GB WALKER, WBAT, PT STATES HER LEFT KNEE BOTHERS HER AT TIMES WHEN PUTTING WEIGHT ON LEFT LEG, LIDOCAINE PATCH TO LEG, NO FURTHER MEDICATION NEEDED, TAKING FOOD AND FLUIDS WELL, AUDIBLE WHEEZES HEARD THIS AM AT REST, PT STATES SHE DOES GET WHEEZES AT HOME, PT ALSO COMPLAINS OF DRY COUGH, MEDICATION GIVEN AND PT STATES HER COUGH IS GONE, INFORMED PHYSICIAN OF WHEEZES, WHEEZING INCREASED WITH ACTIVITY IN AM BUT NO FURTHER WHEEZES NOTED THIS PM. AMB TO BATHROOM, AMBULATED TO DININGROOM, HAD SEVERAL VISITORS TODAY, UP IN CHAIR ALL SHIFT, HOURLY ROUNDING COMPLETED, ASSESSMENT COMPLETE, WILL CONTINUE TO MONITOR.
[2018-10-25 20:00] VITALS: BP 139/65
--- NOTE | 2018-10-26 00:09 | NUR ---
ASSUMED CARE AT 1930. PATIENT RESTED IN RECLINER UNTIL ABOUT 1944 THEN VOIDED PER TOILET AND TO BED. WEARS PULLUP WITH SET UP. UP WITH SBA, GAIT BELT, WALKER. WBAT. TAKES PILLS WHOLE A FEW AT A TIME WITH WATER. DENIES PAIN. HOURLY ROUNDS CONTINUE. BED ALARM ON. CALL LITE IN REACH.
--- NOTE | 2018-10-26 05:59 | NUR ---
SLEPT MOST OF THE NIGHT EXCEPT AWAKENED TO VOID. HAD SOME EDEMA IN LEGS AT HS, NOW IMPROVED. VOIDED ABOUT EVERY TWO HOURS THRU THE NOC. UP WITH SBA, GAIT BELT, WALKER. RETURNS TO SLEEP AFTER VOIDING. HOURLY ROUNDS CONTINUE. BED ALARM ON. CALL LITE IN REACH.
[2018-10-26 08:00] VITALS: BP 123/68
--- NOTE | 2018-10-26 16:20 | NUR ---
I have reviewed the documentation by GINETTE ROCHA from TODAY and I concur with it. CASI LLOYD
[2018-10-26 19:30] VITALS: BP 110/74
--- NOTE | 2018-10-26 21:30 | NUR ---
SITTING UP IN RECLINER WATCHING TV. PAIN MEDICATION GIVEN FOR COMPLAINT OF LEFT HIP PAIN RATED "2". TOOK MEDICATIONS ONE AT A TIME WITH WATER. TRANSFERRED FROM RECLINER TO BED WITH SBA, GAITBELT, WALKER.
--- NOTE | 2018-10-27 05:27 | NUR ---
RESTED ON/OFF. UP X ONE TO THE BATHROOM TO VOID. HOURLY ROUNDING IN PROGRESS.
[2018-10-27 08:00] VITALS: BP 133/65
--- NOTE | 2018-10-27 14:13 | NUR ---
AM ASSESSMENT AND VITAL SIGNS COMPLETED DOCUMENTED. LIDOCAINE PATCH APPLIED TO LEFT KNEE WITH LITTLE RELIEF. PRN HYDROCODONE GIVEN X1 WITH GOOD RELIEF. PT IS WEIGHT BEARING TOLERATED AND AMBULATES TO AND FROM THE DINING ROOM FOR MEALS WITH A WALKER AND SBA. FALL PRECAUTIONS AND HOURLY ROUNDING CONTINUE.
--- NOTE | 2018-10-27 15:55 | NUR ---
SW checked in with pt to follow up on dc planning and in preparation for team conference on Friday. Pt hopeful to be able to dc on . Pt said that her son Noe may even stay with pt for a couple days at dc. SW to continue to follow to assist with safe dc planning.
--- NOTE | 2018-10-27 16:22 | NUR ---
I have reviewed the documentation by GINETTE ROCHA from TODAY and I concur with it. CASI LLOYD
--- NOTE | 2018-10-27 19:40 | NUR ---
SITTING UP IN RECLINER WITH LEGS ELEVATED. 2+ BILATERAL PEDAL EDEMA NOTED. DENIES DISCOMFORT. AMBULATED TO THE BATHROOM WITH SBA, GAITBELT, WALKER. DOES OWN HYGIENE AND CLOTHING ADJUSTMENTS.
[2018-10-27 20:20] VITALS: BP 145/61
--- NOTE | 2018-10-28 05:07 | NUR ---
GIVEN SLEEP MED WITH GOOD RESULTS. UP X ONE DURING THE NIGHT TO THE BATHROOM TO VOID. NO COMPLAINT OF PAIN. HOURLY ROUNDING IN PROGRESS.
[2018-10-28 07:47] VITALS: BP 147/74
--- NOTE | 2018-10-28 13:26 | NUR ---
ANIBAL, Dr Parra and med student met with pt to review team conference summary and plan for pt to dc Friday as long as plan is in place for pt to dc home with support, team not recommending pt dc home alone. Pt was in disagreement with that plan, pt attests that she could go home alone and says her son would stay with her a couple of days. Dr Parra relayed team's recommendation for pt to have supervision and support indefinitely. Pt also says (again) she will refuse HH services, that she has had them in the past and thinks they're "worthless"; Dr Parra expressed importance of accepting HH. Dr Parra encouraged pt to accept and ensure safe dc plan is in place rather than pt dc AMA. Pt said she would call her son but expressed that she was not pleased. SW called pt son Noe who answered after an abnormal number of rings and reviewed team conference summary and plan for pt to dc home Friday with recommendation of assistance at all times for more than 2 days; Noe confirmed he would be there at least 2 days and said he thinks his "aunt" who pt son said is named Gladis would be with pt longer. SW called pt "cousin" (according to pt) Gladis who did not answer so SW left a detailed message about pt safe dc planning and the need for pt to have supervision at home at dc and encouraged a call back. Orders for pt to have nebulizer and rolling walker at dc. Will order through [facility] as Medicare bid for nebulizers is only with [facility]. Final HH services at dc decision to be determined; at this time, pt still declining. SW to continue to follow to assist with safe dc planning.
--- NOTE | 2018-10-28 16:26 | NUR ---
I have reviewed the documentation by GINETTE ROCHA from TODAY 10/28/18 and I concur with it. CASI LLOYD
--- NOTE | 2018-10-28 18:12 | NUR ---
pt has participated with therapies and visits with others at lunch and supper in dinningroom.pt denies pain. pt is continent of b+b. pt ambulates with steady gait,gaitbelt and walker and sba to dinningroom for meals. pt remains alert and orientated. hourly rounding continues.
[2018-10-28 20:27] VITALS: BP 147/72
--- NOTE | 2018-10-29 01:28 | NUR ---
ASSUMED CARE @ 1950-10/28-FRI.SITS IN RECLINER WATCHING TV W/ LE'S UP.CHAIR ALARM ON ALREADY @ 1949.WBAT LEFT LE DURING AMBULATION.BED ALARM ALREADY ON @ 2199.WEARS PULL UPS.MIN ASSIST FOR ALL TRANSFERS.SBA FOR TOILETING.ON HOURLY ROUNDS.DERMATOPATHOLOGIST DOING ODD HOUR ROUNDS.
--- NOTE | 2018-10-29 05:20 | NUR ---
SLEEPING SINCE 2200.AWAKE @ INTERVALS FOR BSC X5 W/ SBA.TOOK ALL ORANGE SHERBET HS SNACK.PLAN FOR DISCHARGE MONDAY 10/30.
[2018-10-29 06:30] VITALS: BP 138/62
--- NOTE | 2018-10-29 16:40 | NUR ---
I have reviewed the documentation by GINETTE ROCHA from TODAY 10/29/18 and I concur with it. CASI LLOYD
--- NOTE | 2018-10-29 18:45 | NUR ---
PT HAS PARTICIPATED WITH THERAPIES AND CALLS FOR ASSIST NEEDED. PT IS CONTINENT OF BLADDER AND USES TOILET. PT DENIES PAIN. PT AMBULATES WITH STEADY GAIT WITH WALKER AND SBA.PT PLANNING TO DISCHARGE TO HOME TOMORROW AND REMAINS ALERT AND ORIENTATED.
[2018-10-29 19:10] VITALS: BP 132/66
--- NOTE | 2018-10-29 19:45 | NUR ---
SITTING UP IN RECLINER WATCHING TV. DENIES DISCOMFORT. AMBULATED TO THE BATHROOM WITH SBA, GAITBELT, WALKER, WBAT LLE.
--- NOTE | 2018-10-30 05:26 | NUR ---
UP X 3 DURING THE NIGHT TO THE BATHROOM TO VOID. NO COMPLAINTS OF DISCOMFORT. TO BE DISCHARGED TO HOME TODAY. HOURLY ROUNDING IN PROGRESS.
[2018-10-30 08:03] VITALS: BP 140/81
[2018-10-30 11:56] VITALS: BP 149/77
--- NOTE | 2018-10-30 12:04 | NUR ---
Pt to dc home today with family support and HH services to follow. ANIBAL faxed final dc orders and med list to pt preference of [facility]. SW confirmed order for nebulizer and walker with [facility] (SW had faxed updated progress note and order with NPI to [facility] earlier this morning). [facility] to deliver DME prior to pt dc. ANIBAL provided resources and life alert information to pt. Pt son to stay with pt for a while and then pt family to check on pt more often and HH to assess pt safety at home. Pt son providing pt ride home.
--- NOTE | 2018-10-30 14:19 | NUR ---
I have reviewed the documentation by GINETTE ROCHA from TODAY 10/30/18 and I concur with it. CASI LLOYD
[2018-10-30] MEDS ORDERED: VITAMIN B-12500 MCG PO (14:33)
--- NOTE | 2018-10-30 15:00 | NUR ---
AM ASSESSMENT AND VITAL SIGNS COMPLETED DOCUMENTED. PT COMPLETED AM THERAPY SESSIONS AND HAS MET HER DISCHARGE GOALS. [facility] DELIVERED THE WALKER AND NEBULIZER. PT's SON HERE, DISCHARGE INSTRUCTIONS PROVIDED. PT AND HER BELONGINGS WERE TRANSPORTED TO THE EXIT, PT HELPED HER WITH THE CAR TRANSFER. PATIENT DISCHARGED HOME IN STABLE CONDITION.
== END 2018-10-30 15:08 | disposition home health service (06) | DRG 563 ==
LOC: M.REH 15:55
PROVIDERS: Family Medicine; Internal Medicine; ADMIT Physical Medicine & Rehabilitation
DX: S82.145A Nondisplaced bicondylar fracture of left tibia, initial encounter for closed fracture (principal); E87.2 Acidosis; E87.1 Hypo-osmolality and hyponatremia; Z85.3 Personal history of malignant neoplasm of breast; I10 Essential (primary) hypertension; E11.9 Type 2 diabetes mellitus without complications; E78.00 Pure hypercholesterolemia, unspecified; R53.81 Other malaise; Z88.1 Allergy status to other antibiotic agents; Z88.8 Allergy status to other drugs, medicaments and biological substances; Z91.048 Other nonmedicinal substance allergy status; Z79.899 Other long term (current) drug therapy; Z90.11 Acquired absence of right breast and nipple; Z98.41 Cataract extraction status, right eye; Z98.42 Cataract extraction status, left eye; Z96.1 Presence of intraocular lens; Z90.49 Acquired absence of other specified parts of digestive tract; Z60.2 Problems related to living alone; Z79.84 Long term (current) use of oral hypoglycemic drugs; G25.81 Restless legs syndrome; N81.4 Uterovaginal prolapse, unspecified; J45.20 Mild intermittent asthma, uncomplicated; J44.9 Chronic obstructive pulmonary disease, unspecified; X58.XXXA Exposure to other specified factors, initial encounter; Y93.89 Activity, other specified; Y92.89 Other specified places as the place of occurrence of the external cause; Y99.8 Other external cause status

== ENCOUNTER 2019-08-03 01:59 | Emergency (ER) | payer MEDICARE, BC, OTHER ==
[~2019-08-03] VITALS: Ht 162.6 cm; Wt 55.2 kg
[~2019-08-03 01:59] MED LIST changes: +ESTRADIOL 1 MG T1 M1 PO; +VITAMIN B-12500 MCG PO; +[UNRECOGNIZED DRUG - SUPPLY] VAG
[2019-08-03] MEDS ORDERED: VITAMIN D31000 UNIT PO (02:09)
[2019-08-03] MEDS ORDERED: CLARITIN10 M3 PO (02:10)
[2019-08-03] MEDS ORDERED: TESSALON PERLE100 M1 PO (02:10)
[2019-08-03] MEDS ORDERED: VITAMIN E400 UNI5 PO (02:10)
[2019-08-03] MEDS ORDERED: CARDIZEM LA120 M1 PO (02:11)
[2019-08-03] MEDS ORDERED: MILK OF MA400 MG/5 M PO (02:11)
[2019-08-03] MEDS ORDERED: PLAVIX 75 MG TA75 MG PO (02:11)
[2019-08-03] MEDS ORDERED: TYLENOL325 MG PO (02:12)
[2019-08-03] MEDS ORDERED: PHENAZOPYRIDIN200 MG PO (02:12)
[2019-08-03] MEDS ORDERED: SPIRONOLACTONE25 MG PO (02:13)
[2019-08-03] MEDS ORDERED: ISOSORBIDE MONO30 M1 PO (02:21)
[2019-08-03] MEDS ORDERED: IRON325 M1 PO (02:23)
[2019-08-03] MEDS ORDERED: TOPROL XL100 MG PO (02:24)
[2019-08-03] MEDS ORDERED: PRAVACHOL40 MG PO (02:25)
[2019-08-03] MEDS ORDERED: MIRALAX119 GM PO (02:25)
[2019-08-03] MEDS ORDERED: IMODIUM A-D2 M1 PO (02:26)
[2019-08-03] MEDS ORDERED: LOMOTIL 2.5-0.01 TAB PO (02:26)
[2019-08-03] MEDS ORDERED: ZOFRAN4 MG PO (02:27)
[2019-08-03] MEDS ORDERED: DIAPER RASH OIN56 GM TOP (02:27)
[2019-08-03 02:37] LABS: ABSOLUTE EOSINOPHILS 0.1 thou/uL (0.0-0.7); ABSOLUTE LYMPHOCYTES 0.9 thou/uL (0.8-5.3); ABSOLUTE MONOCYTES 0.5 thou/uL (0.0-1.2); BASOPHILS 0.7 %; EOSINOPHILS 2.4 %; HEMATOCRIT 35.9 % (37.0-47.0); HEMOGLOBIN 11.9 gm/dL (12.0-15.0); LYMPHOCYTES 24.9 %; MCV 78.8 fL (80.0-100.0); MPV 9.1 fl. (7.2-11.1); NUCLEATED RBCS 0 /100WBC; PLATELET COUNT* 172 thou/uL (150-400); RBC 4.56 mil/uL (4.20-5.00); RDW-CV 20.4 % (10.5-14.5); WBC 3.5 thou/uL (4.0-11.0)
[2019-08-03 02:43] LABS: CALCIUM 8.9 mg/dL (8.5-10.1); CREATININE 0.6 mg/dL (0.6-1.3); POTASSIUM 3.9 mmol/L (3.5-5.1)
[2019-08-03 02:48] LABS: ALBUMIN 3.7 g/dL (3.4-5.0); TOTAL BILIRUBIN 0.7 mg/dL (<0.1-1.0); TOTAL PROTEIN 6.2 g/dL (6.4-8.2)
[2019-08-03 04:51] LABS: URINE BILIRUBIN NEGATIVE (Negative); URINE BLOOD NEGATIVE (Negative); URINE CLARITY CLEAR; URINE COLOR YELLOW; URINE GLUCOSE-RANDOM TRACE (Negative); URINE KETONES NEGATIVE (Negative); URINE NITRITE-REFLEX NEGATIVE (Negative); URINE PROTEIN NEGATIVE (Negative); URINE UROBILINOGEN 0.2 E.U./dl (0.2-1.0)
[2019-08-03 04:57] LABS: URINE LEUKOCYTES-REFLEX 2+ (Negative)
[2019-08-03 05:23] LABS: INR 1.2; PROTIME 12.6 Seconds (9.20-11.50)
[2019-08-03 05:33] LABS: CASTS None Seen /LPF (None Seen); CRYSTALS None Seen /LPF (None Seen); SQUAMOUS >10 Many /LPF (0-3); URINE RBC None Seen /HPF (0-2); URINE WBC-REFLEX 6-15 Few /HPF (0-5)
[2019-08-03 06:15] LABS: PLATELET ESTIMATE ADEQUATE
[2019-08-03 06:17] LABS: HYPOCHROMASIA 1+; OVALOCYTES 1+
[2019-08-03 06:18] LABS: ANISOCYTOSIS 1+; POIKILOCYTOSIS 1+
[2019-08-03 06:22] VITALS: BP 147/92
--- NOTE | 2019-08-03 11:14 | EKG ---
[place] [address] ELECTROCARDIOGRAM REPORT Name: NESSA JOSÉ Room: [facility]#: [id number] Admission: 08/03/19 Attend Phys: Discharge: 08/03/19 Date of : 40 Report #: [id number] THIS REPORT FOR: //name// [facility] ED Test Date: 2019-08-03 Test Time: 03:25:38 Pat Name: NESSA JOSÉ Department: Room: Gender: F Pharmacy Messenger: : [phone] Requested By: Celina Mari Order Number: [id number] MD: Yuri Rojas Measurements Intervals [place] Rate: 80 P: MD: QRS: -27 QRSD: 110 T: 257 QT: 351 QTc: 405 Interpretive Statements Atrial fibrillation Left anterior fascicular block Compared to ECG 09/09/2018 13:36:41 Early repolarization now present ST (T wave) deviation now present Sinus rhythm no longer present Electronically Signed On 08-03-2019 11:14:12 STRIPPING AND BOOKING MACHINE OPERATOR by Yuri Rojas [email or web address] <ELECTRONICALLY SIGNED> By: Yuri Rojas MD, FACC 08/03/19 1114 0325 0325 Yuri Rojas MD, [facility] /EPI
== END 2019-08-03 06:24 | disposition short-term general hospital (02) ==
LOC: M.ERS 01:59
PROVIDERS: Emergency Medicine
DX: S22.050A Wedge compression fracture of T5-T6 vertebra, initial encounter for closed fracture (principal); S32.030A Wedge compression fracture of third lumbar vertebra, initial encounter for closed fracture; S02.2XXA Fracture of nasal bones, initial encounter for closed fracture; S00.83XA Contusion of other part of head, initial encounter; E87.1 Hypo-osmolality and hyponatremia; M25.552 Pain in left hip; I10 Essential (primary) hypertension; E11.9 Type 2 diabetes mellitus without complications; E78.5 Hyperlipidemia, unspecified; M54.9 Dorsalgia, unspecified; G89.29 Other chronic pain; Z90.49 Acquired absence of other specified parts of digestive tract; Z87.440 Personal history of urinary (tract) infections; Z86.2 Personal history of diseases of the blood and blood-forming organs and certain disorders involving the immune mechanism; Z85.3 Personal history of malignant neoplasm of breast; Z90.11 Acquired absence of right breast and nipple; Z91.048 Other nonmedicinal substance allergy status; Z88.1 Allergy status to other antibiotic agents; Z88.8 Allergy status to other drugs, medicaments and biological substances; W06.XXXA Fall from bed, initial encounter; Y93.89 Activity, other specified; Y92.89 Other specified places as the place of occurrence of the external cause; Y99.8 Other external cause status

== ENCOUNTER 2019-11-29 18:02 | Emergency (ER) | payer MEDICARE, BC, OTHER ==
[~2019-11-29] VITALS: Ht 152.4 cm; Wt 47.6 kg
[~2019-11-29 18:02] MED LIST changes: +CARDIZEM LA120 M1 PO; +CLARITIN10 M3 PO; +DIAPER RASH OIN56 GM TOP; +IMODIUM A-D2 M1 PO; +IRON325 M1 PO; +ISOSORBIDE MONO30 M1 PO; +LOMOTIL 2.5-0.01 TAB PO; +MILK OF MA400 MG/5 M PO; +MIRALAX119 GM PO; +PHENAZOPYRIDIN200 MG PO; +PLAVIX 75 MG TA75 MG PO; +PRAVACHOL40 MG PO; +SPIRONOLACTONE25 MG PO; +TESSALON PERLE100 M1 PO; +TOPROL XL100 MG PO; +TYLENOL325 MG PO; +VITAMIN D31000 UNIT PO; +VITAMIN E400 UNI5 PO; +ZOFRAN4 MG PO
[2019-11-29 18:18] VITALS: BP 138/83
== END 2019-11-29 19:08 | disposition left against medical advice (07) ==
LOC: M.ERS 18:02
DX: Z53.21 Procedure and treatment not carried out due to patient leaving prior to being seen by health care provider (principal)